=== PATIENT | female | born 1960 | race Caucasian/White ===

== ENCOUNTER → 2016-05-27 | Outpatient (CLI) | payer OTHER ==
[2016-05-27 11:13] LABS: BUN 14 mg/dL (7-18)
[2016-05-27 11:20] LABS: GFR (ESTIMATED) 129 ML/MIN (59-)
== END ==
LOC: LAB 10:09
PROVIDERS: Physician Assistant
DX: Z13.29 Encounter for screening for other suspected endocrine disorder (principal); Z13.1 Encounter for screening for diabetes mellitus; Z13.220 Encounter for screening for lipoid disorders

== ENCOUNTER → 2017-01-03 | Outpatient (CLI) | payer OTHER ==
--- NOTE | 2017-01-03 17:05 | RADIOLOGY REPORT PS360 ---
KNEE-3 VIEWS-LT HISTORY: LEFT KNEE PAIN ORDERING PHYSICIAN: Kim Mckeon APRN PATIENT AGE: 56 years COMPARISON: None FINDINGS: No fracture or dislocation. No lytic or blastic change. Normal mineralization. No significant arthritic changes evident. No other significant findings. Incidental note made of an enthesophyte along the superior patella IMPRESSION: Negative Knee
--- NOTE | 2017-01-08 11:41 | RADIOLOGY REPORT PS360 ---
DIG MAMM-SCREEN [facility] W/CAD CAD Screening COMPARISON: Digital mammograms 03/23/2015 INDICATION: There is no personal or family history of breast cancer TECHNIQUE: Standard CC and MLO images were obtained. R2 CAD reviewed. FINDINGS: Moderate heterogenic fibroglandular densities are seen in the subareolar regions of both breasts and the findings are bilateral and symmetrical. There is no suspicious lesion and there are no suspicious microcalcifications. IMPRESSION: Moderate breast density with no suspicious lesion seen, recommend yearly follow-up BI-RADS CATEGORY: 1_Negative RECOMMENDED FOLLOWUP: 12M 12 MONTH FOLLOW-UP (A letter has been sent to the patient regarding results of the study.)
== END ==
LOC: RAD 16:15
DX: Z12.31 Encounter for screening mammogram for malignant neoplasm of breast (principal); M25.562 Pain in left knee
CPT/HCPCS: G0202